=== PATIENT | male | born 2005 | race Two or more races ===

== ENCOUNTER 2024-11-01 13:02 | Emergency (ER) | payer MEDICAID, SELFPAY ==
[2024-11-01 13:09] VITALS: BP 169/82; PULSE 88; RESP 20; TEMP 37.2; O2SAT 98; BMI 29.5
--- NOTE | 2024-11-01 13:19 | PD.EDALLER ---
ED Allergic Reaction RME/HPI General Chief complaint: Allergic Reaction Stated complaint: multiple bee stings, swollen lips at 0930 Time Seen by Provider: 11/01/24 13:05 Arrival date/time: 11/01/24 13:02 RME / HPI RME / HPI narrative: 19-year-old male patient came in for evaluation regarding bee sting. Patient apparently was bitten by a bee, multiple times, resulting into swelling of the upper lip, swelling and rashes noted scattered all over extremity mild. Denies any difficulty swallowing. Denies any shortness of breath. Patient denies any similar episode in the past. Incident happened 4 hours prior to ER visit. No medication was taken prior to arrival. Related Data Previous Rx's ?Medication ?Instructions ?Recorded diphenhydramine HCl 50 mg tablet 50 mg PO TID PRN allergic reaction 11/01/24 (Benadryl Allergy) #30 tabs epinephrine 0.3 mg/0.3 mL 0.3 ml subcut .once PRN 11/01/24 injection, auto-injector hypersensitivity reaction #2 ea prednisone 50 mg tablet 50 mg PO QDAY #7 tabs 11/01/24 Allergies Allergy/AdvReac Type Severity Reaction Status Date / Time No Known Allergies Allergy Verified 01/22/23 06:25 Review of Systems Review of Systems Narrative Review of Systems: Review of system reviewed and within normal limits except mentioned in HPI ED Exam Narrative Physical exam: VITAL SIGNS: Reviewed. GENERAL APPEARANCE: Alert and interactive, follows commands, no acute distress, HEAD AND FACE: Non-traumatic. ENT: PERRL, pink conjunctivitis, eyelid no trauma, Mucous membrane moist. Swelling upper lip NECK: Supple, nontender, no nuchal rigidity. CHEST: No tenderness, no crepitus, no paradoxical movement, no retractions. LUNGS: Clear, well ventilated, symmetric, no rales, no wheezing, no ronchi, no stridor, good breath sounds bilaterally. HEART: Regular rate, regular rhythm, no murmur, no gallops. ABDOMEN: Soft, positive bowel sounds, nondistended, no guarding, nontender, no rebound, no masses, RECTAL: Deferred. GENITAL: Deferred. NEUROLOGICAL: Gross motor function intact sensory function intact, Appropriate for age. MUSCULOSKELETAL: low back nontender, full range of motion. EXTREMITIES: Nontender, full range of motion. SKIN: Color pink, dry, multiple erythematous rashes noted on the bilateral upper extremity and upper back,, no lacerations, no abrasions, no contusions. LYMPHATICS: Deferred. Course Quality Measures none Orders Category Date Time Status Dexamethasone Inj [Decadron Inj] Med 11/01/24 13:19 Discontinued 10 mg IM X1 ONE DiphenhydrAMINE [Benadryl] Med 11/01/24 13:19 Discontinued 50 mg PO X1 ONE Famotidine [Pepcid] Med 11/01/24 13:19 Discontinued 40 mg PO X1 ONE Vital Signs Vital signs: Vital Signs Temperature 98.9 F 11/01/24 13:09 Pulse Rate 88 11/01/24 13:09 Respiratory Rate 20 11/01/24 13:09 Blood Pressure 169/82 H 11/01/24 13:09 Pulse Oximetry (%) 98 11/01/24 13:09 Oxygen Delivery Method Room Air 11/01/24 13:09 Allergic Reaction MDM Narrative MDM Narrative:: 19-year-old male patient came in for evaluation regarding bee sting. Patient apparently was bitten by a bee, multiple times, resulting into swelling of the upper lip, swelling and rashes noted scattered all over extremity mild. Denies any difficulty swallowing. Denies any shortness of breath. Patient denies any similar episode in the past. Incident happened 4 hours prior to ER visit. No medication was taken prior to arrival. Patient received Decadron, Pepcid and Benadryl with significant improvement of symptoms patient stable for discharge home. Will be prescribing the patient on prednisone Benadryl and EpiPen as needed for anaphylactic shock Patient data External records reviewed:: None Clinical information provided by:: patient Social determinants that could affect healthcare access:: none Patient has the following chronic illnesses:: None How is presenting disease/condition affected by chronic disease/condition?: no chronic disease Evaluation data The following diagnostics were reviewed and interpreted by me:: other (specify) (None) Lab and/or radiology exams considered but not ordered:: None Interpretation Summary: None Medications / Prescriptions Medications or Prescriptions considered but not ordered:: None Medication administrations:: Medication Administration History Discontinued Medications Dexamethasone Sodium Phosphate (Dexamethasone Sod Phos Inj 10 Mg/Ml Vial) 10 mg IM X1 ONE Stop: 11/01/24 13:20 Last Admin: 11/01/24 13:29 Dose: 10 mg Documented By: DEEPA Diphenhydramine HCl (Diphenhydramine 25 Mg Capsule) 50 mg PO X1 ONE Stop: 11/01/24 13:20 Last Admin: 11/01/24 13:28 Dose: 50 mg Documented By: DEEPA Famotidine (Famotidine 20 Mg Tablet) 40 mg PO X1 ONE Stop: 11/01/24 13:20 Last Admin: 11/01/24 13:28 Dose: 40 mg Documented By: DEEPA Benadryl Pepcid and Decadron Consultations Consultation(s) initiated? (list below): No Diagnosis Differential Diagnosis allergic reaction: anaphylaxis, allergic reaction and other (Bee sting) Most likely diagnosis given after review of the tests above:: Bee sting, allergic to bees Admission Indicated Admission indicated?: not indicated Admission Request Was there a request for admission?: No Disposition Plan Disposition Plan: Discharge Discharge Attestation Discharge Attestation: The patient and all family members were given an opportunity to ask questions and understood the discharge instructions. Discharge instructions specifically effects, indications for sooner follow up or return to the emergency department, and the expected course of current diagnosis. Patient condition: Stable Discharge Plan Plan Patient Disposition: HOME (Self Care) Discharge Disposition comment: stable Prescriptions/Referrals Prescriptions/Med Rec: New prednisone 50 mg tablet 50 mg PO QDAY Qty: 7 0RF Benadryl Allergy 50 mg tablet 50 mg PO TID PRN (Reason: allergic reaction) Qty: 30 0RF epinephrine 0.3 mg/0.3 mL auto-injector 0.3 ml subcut .once PRN (Reason: hypersensitivity reaction) Qty: 2 0RF Referrals: Yoshi Brown [Primary Care Provider] - In 1 week Problem List Clinical Impression: Allergic reaction, Bee sting Patient/Caregiver Discharge Instructions Discharge Activity: activity as tolerated Education Materials: ED Bite Sting Insect Gen Allergic React Additional Instructions: Thank you for the opportunity for serving you today. You are stable for discharged . You are advised to: Follow-up with your PCP in 1 to 2 days Return to ED for worsening of symptoms Increase oral fluids Take medication as prescribed Print Language: [place] Stand Alone Forms: Yohana Award Info., Patient Portal Info Letter TERA/CARI Supervising Physician TERA/CARI Supervising Physician: MD Helen
[2024-11-01] MEDS: DiphenhydrAMINE 25 MG CAPSULE 50 MG PO (13:28)
[2024-11-01] MEDS: FAMOTIDINE 20 MG TABLET 40 MG PO (13:28)
[2024-11-01] MEDS: DEXAMETHASONE SOD PHOS INJ 10 MG/ML VIAL IM (13:29)
--- NOTE | 2024-11-01 13:30 | PC.NURSE ---
PER PROVIDER REQUEST TO PO OF DEXMETHASONE
[2024-11-01 15:51] VITALS: BP 149/71; PULSE 75; RESP 18; TEMP 36.7; O2SAT 99
== END 2024-11-01 15:50 | disposition home or self-care (01) ==
PROVIDERS: Emergency Provider Emergency Medicine; PCP Physician Assistant
DX: T63.441A Toxic effect of venom of bees, accidental (unintentional), initial encounter (principal); R22.0 Localized swelling, mass and lump, head
CPT/HCPCS: 99282; J1100; A9270